=== PATIENT | male | born 1945 | race Caucasian/White ===

== ENCOUNTER 2023-01-18 15:05 | Observation (INO) ==
--- NOTE | 2023-01-18 15:42 | ED Triage Note ---
Date of Service January 18, 2023 History of Present Illness This patient was briefly evaluated while in triage. An abbreviated physical exam was performed. This patient is a 77-year-old Male who presents to the ED for evaluation of no good BM x 1 week using miralax seen in ED in [place] in mid december-diagnosed with diverticulitis-treated with antibiotics abdominal pain, left sided Physical Exam GENERAL: NAD CARDIOVASCULAR: RRR RESPIRATORY: CTA ABDOMEN: BS x 4. Nontender to palpation. Initial orders for labs and / or imaging were placed and patient was placed in the waiting area until a bed is available. Please see further documentation for the full ED course. MDM / Impression Impression Impression: Diverticulitis, Abdominal pain Impression: Abdominal pain Qualifiers: Abdominal location: left lower quadrant Qualified Code(s): R10.32 - Left lower quadrant pain
[2023-01-18 16:39] LABS: Basophils # (auto) 0.04 K/uL (0.00-0.20); Basophils % (auto) 0.6 %; Eosinophils # (auto) 0.21 K/uL (0.00-0.50); Eosinophils % (auto) 3.2 %; Hematocrit (blood only) 44.7 % (42.0-52.0); Hemoglobin 14.8 g/dl (14.0-18.0); Immature Granulocytes # (auto) 0.03 K/uL (0.01-0.20); Immature Granulocytes % (auto) 0.5 %; Lymphocytes # (auto) 2.06 K/uL (1.20-3.40); Lymphocytes % (auto) 31.6 %; Mean Corpuscular Hemoglobin 28.2 pg (25.0-34.0); Mean Corpuscular Hgb Conc 33.1 g/dL (32.0-36.0); Mean Corpuscular Volume 85.3 fL (80.0-100.0); Mean Platelet Volume 10.2 fL (9.4-12.4); Monocytes # (auto) 0.56 K/uL (0.11-0.59); Monocytes % (auto) 8.6 %; Neutrophils # (auto) 3.61 K/uL (1.40-6.50); Neutrophils % (auto) 55.5 %; Platelet Count 272 K/uL (130-400); RDW Coefficient of Variation 13.1 % (11.5-14.5); Red Blood Count 5.24 M/uL (4.70-6.10); White Blood Count 6.51 K/ul (4.8-10.8)
[2023-01-18 17:02] LABS: Albumin Globulin Ratio 1.2 (0.9-2); Bilirubin,Total 0.9 mg/dl (0.2-1.0); Calcium 9.3 mg/dl (8.6-10.3); Creatinine Clr Calc Pharmacy 58.1 ml/min; Est GFR (Non-African American) 73.3 ml/min; Globulin 3.3 gm/dl (2.5-4.0); Potassium 4.1 mmol/L (3.5-5.1); Total Protein 7.3 gm/dl (6.0-8.3)
[2023-01-18] MEDS ORDERED: OPTIRAY 320 100ml IV ONE (18:34)
--- NOTE | 2023-01-18 19:09 | CT Scan Report ---
ABDOMEN AND PELVIS CT WITH IV CONTRAST CT DOSE: 931.46 mGy.cm HISTORY: Acute generalized abdominal pain abdominal pain, constipated, recent diverticulitis TECHNIQUE: Multiaxial CT images of the abdomen and pelvis were performed following the IV administrat ion of 92 cc of Optiray, A dose lowering technique was utilized adhering to the principles of ALARA. COMPARISON STUDY: None. FINDINGS: Mild bibasilar atelectasis. No free air. Unremarkable spleen, pancreas and adrenal glands. Indeterminant 1.6 cm nodular density within the sandhya hepatis with a normal gallbladder not visualize d. Indeterminate 1.4 similar hypodensity of the inferior right hepatic lobe on image 95. Mild dilatio n of the common bile duct, 1.2 cm. Patent portal vein. Bilateral renal sinus cysts. 8 mm cyst of the superior pole left kidney. Mild cortical thinning of th e kidneys without hydronephrosis. Decompressed or neobladder with wall thickening. Atherosclerosis of the aorta. No lymphadenopathy. No bowel obstruction. Colonic diverticulosis. Acute diverticulitis of the proximal sigmoid colon with small pericolonic fluid collection measuring 11 mm on image 2:30. Unremarkable soft tissues. Hernior rhaphy coils within the abdominal floor quadrant. No acute fracture. IMPRESSION: 1. Acute sigmoid diverticulitis with 11 mm pericolonic fluid collection suggestive of a developing ab scess. No pneumoperitoneum or drainable fluid collection identified at this time. 2. No bowel obstruction. 3. Additional findings as above. ACT 112: Negative or not required by law. The above report was generated using voice recognition software. It may contain grammatical, syntax o r spelling errors. Electronically signed by: Chance Abdi M.D. 01/18/2023 7:07 PM
[2023-01-18] MEDS ORDERED: PIPERACILLIN/TAZOBACTAM 4.5 GM/100 ML BAG IV ONE (20:02)
--- NOTE | 2023-01-18 20:04 | Emergency Department Note ---
History of Present Illness General Chief complaint: Constipation Stated complaint: FULL OF POOP Time Seen by Provider: 01/18/23 19:51 Source: patient, family ( was at the bedside), RN notes reviewed and old records reviewed Mode of arrival: ambulatory Limitations: no limitations History of Present Illness Maximum Pain Intensity: 4 This patient is a 77-year-old male comes in with abdominal pain and difficulty h aving a bowel movement. He was diagnosed with diverticulitis about 6 weeks ago when he was in [facility]. He had 10 days of Cipro. There is no Flagyl he says. He felt a lot better is about a week ago he started having some abdominal problems this starting and constipated worse not having full bowel movement but is passing liquid he says. Questionable fever on Wednesday but none since then he had some nausea no emesis. His abdominal pain comes and goes is diffuse more so on the left. He had some mild dysuria this today but no hematuria. No fall or trauma no headache. Allergies Allergy/AdvReac Type Severity Reaction Status Date / Time No Known Allergies Allergy Verified 01/18/23 15:42 Past Med/Surg History Social History Smoking Status: Never smoker Preferred Language: Belarusian Feels Safe at Home: Yes Immunizations: Past medical historygallbladder removal, diverticulitis, arthritis. He takes no regular medications he is on no blood thinners Social history he is in town visiting he is from [place] he is here with his Review of Systems A total of 10 systems reviewed and were otherwise negative Physical Exam Vital Signs Vital Signs - 24 hr 01/18/23 15:39 01/18/23 21:00 Temperature 36.7 C Temperature Source Temporal Artery Scan Pulse Rate 70 Pulse Rate [Finger] 72 Pulse Rhythm [Finger] Regular Respiratory Rate 19 18 Respiratory Effort / Characteristics Non-Labored Respiratory Depth Normal Blood Pressure 144/72 H Blood Pressure [Right Arm] 130/70 Blood Pressure Mean 96 Blood Pressure Mean [Right Arm] 90 Pulse Oximetry 98 96 Oxygen Delivery Method Room Air Room Air Sepsis Recent Fever Within 48 Hours No Sepsis New/Unexplained Change in Mental Status N/A Sepsis Action Taken by Nursing No Action Required General: Well developed well nourished mildly tender palpation in the left lower abdomen and diffusely centrally as well. In no acute distress, breathing comfortably on room air. Normal speech HEENT: Normal cephalic atraumatic. Pupils are equal round and reactive to light. Extraocular movements are intact. Oropharynx is pink with moist mucous membranes. No swelling of the mouth lips or tongue. Neck: Supple with a midline trachea. No meningeal signs or stiffness, no JVD or bruits. No Stridor. Chest: Clear to auscultation bilaterally. No wheezes or rhonchi. No increased work of breathing. Heart: Regular rate and rhythm without murmurs or gallops. Abdomen: Soft nontender, nondistended without rebound guarding or rigidity. Extremities: No cyanosis clubbing or edema. No calf tenderness or assymetry Spine/Back. Non tender to palpation. No CVA tenderness Skin: Good turgor without rashes. Neurologic exam: Cranial nerves two through 12 are intact. Motor and sensation are intact and symmetrical throughout. Course Administered Medications Discontinued Medications Piperacillin Sod/Tazobactam Sod (Zosyn) 4.5 gm in 100 mls @ 200 mls/hr IV NOW ONE Stop: 01/18/23 20:31 Last Admin: 01/18/23 21:06 Dose: 200 mls/hr Documented By: BROCK Ioversol (Optiray 320 100ml) 92 ml IV ONCE ONE Stop: 01/18/23 18:35 Last Admin: 01/18/23 18:34 Dose: 92 ml Documented By: PHUC Medical Decision Making Differential Diagnosis Diverticulitis, diverticular abscess, bowel obstruction, constipation, infection, colitis, electrolyte or metabolic abnormality Medical Records Attestation: I reviewed the patient's medical records. Home Medications Current Medication List: was personally reviewed by me Laboratory Data Attestation: I reviewed the patient's lab results. 01/18/23 16:19 01/18/23 16:19 Lab Results 01/18/23 01/18/23 Range/Units 16:19 16:19 WBC 6.51 (4.8-10.8) K/ul RBC 5.24 (4.70-6.10) M/uL Hgb 14.8 (14.0-18.0) g/dl Hct 44.7 (42.0-52.0) % MCV 85.3 (80.0-100.0) fL MCH 28.2 (25.0-34.0) pg MCHC 33.1 (32.0-36.0) g/dL RDW Std Deviation 41.0 (36.4-46.3) fL RDW Coeff of Niels 13.1 (11.5-14.5) % Plt Count 272 (130-400) K/uL MPV 10.2 (9.4-12.4) fL Immature Gran % (Auto) 0.5 % Neut % (Auto) 55.5 % Lymph % (Auto) 31.6 % [place] % (Auto) 8.6 % Eos % (Auto) 3.2 % Baso % (Auto) 0.6 % Neut # (Auto) 3.61 (1.40-6.50) K/uL Lymph # (Auto) 2.06 (1.20-3.40) K/uL [place] # (Auto) 0.56 (0.11-0.59) K/uL Eos # (Auto) 0.21 (0.00-0.50) K/uL Baso # (Auto) 0.04 (0.00-0.20) K/uL Immature Gran # (Auto) 0.03 (0.01-0.20) K/uL Sodium 142 (136-145) mmol/L Potassium 4.1 (3.5-5.1) mmol/L Chloride 103 (98-107) mmol/L Carbon Dioxide 33 H (21-32) mmol/L Anion Gap 6 (3-11) BUN 15 (6-23) mg/dl Creatinine 1.00 (0.6-1.4) mg/dl Est Cr Clr Drug Dosing 58.1 ml/min Est GFR ( Amer) 85.0 ml/min Est GFR (Non-Af Amer) 73.3 ml/min BUN/Creatinine Ratio 15.0 (10-20) Glucose 97 (70-99(Fasting)) mg/dl Calcium 9.3 (8.6-10.3) mg/dl Total Bilirubin 0.9 (0.2-1.0) mg/dl AST 26 (13-39) U/L ALT 36 (7-52) U/L Alkaline Phosphatase 153 H (34-104) U/L C-Reactive Protein 8.67 H (0-0.5) mg/dl Total Protein 7.3 (6.0-8.3) gm/dl Albumin 4.0 (3.4-5.0) gm/dl Globulin 3.3 (2.5-4.0) gm/dl Albumin/Globulin Ratio 1.2 (0.9-2) Lipase 5 L (11-82) U/L Imaging Data Attestation: I personally reviewed and interpreted this imaging study as follows: My Impression: CAT scan abdomen pelvis. There is diverticulitis Radiologist's Impression: Abdomen/Pelvis CT 01/18/23 15:[address] WITH IV CONTRAST CT DOSE: 931.46 mGy.cm HISTORY: Acute generalized abdominal pain abdominal pain, constipated, recent diverticulitis TECHNIQUE: Multiaxial CT images of the abdomen and pelvis were performed following the IV administration of 92 cc of Optiray, A dose lowering technique was utilized adhering to the principles of ALARA. COMPARISON STUDY: None. FINDINGS: Mild bibasilar atelectasis. No free air. Unremarkable spleen, pancreas and adrenal glands. Indeterminant 1.6 cm nodular density within the sandhya hepatis with a normal gallbladder not visualized. Indeterminate 1.4 similar hypodensity of the inferior right hepatic lobe on image 95. Mild dilation of the common bile duct, 1.2 cm. Patent portal vein. Bilateral renal sinus cysts. 8 mm cyst of the superior pole left kidney. Mild cortical thinning of the kidneys without hydronephrosis. Decompressed or neobladder with wall thickening. Atherosclerosis of the aorta. No lymphadenopathy. No bowel obstruction. Colonic diverticulosis. Acute diverticulitis of the proximal sigmoid colon with small pericolonic fluid collection measuring 11 mm on image 2:30. Unremarkable soft tissues. Herniorrhaphy coils within the ab dominal floor quadrant. No acute fracture. IMPRESSION: 1. Acute sigmoid diverticulitis with 11 mm pericolonic fluid collection suggestive of a developing abscess. No pneumoperitoneum or drainable fluid collection identified at this time. 2. No bowel obstruction. 3. Additional findings as above. ACT 112: Negative or not required by law. The above report was generated using voice recognition software. It may contain grammatical, syntax or spelling errors. Electronically signed by: Chance Abdi M.D. 01/18/2023 7:07 PM MDM Narrative This patient comes in as scribed above. [place] He is having abdominal pain and constipation recent diverticulitis 6 weeks ago. IV access and blood work and CAT scan of been done prior to me seeing him. He has no white count or fever. He has no peritonitis. no significant electrolyte or metabolic abnormalities. his CAT scan is however concerning for diverticulitis with possible early abscess. In light of this, I do think he needs IV antibiotics. I gave him Zosyn 4.5 g IV. I have consulted Dr. Sruthi Fuentes to see him in the ER for these measures. Impression & Plan Diverticulitis, Abdominal pain Discharge Plan Visit Data Chief Complaint: Constipation Stated Complaint: FULL OF POOP ED Provider: Stas Lyles Discharge Problem: Diverticulitis, Abdominal pain Forms Stand Alone Forms: My [facility] Referrals Referrals: PCP,NO [Primary Care Provider] -
[2023-01-18 21:00] LABS: C Reactive Protein 8.67 mg/dl (0-0.5)
--- NOTE | 2023-01-18 21:03 | History & Physical Report ---
Date of Service January 18, 2023 Assessment & Plan (1) Diverticulitis: (2) Macular degeneration: Plan #Diverticulitis NPO Zosyn LR 125cc/hr Tylenol, Morphine for pain management Trend CRP, CBC #Macular Degeneration Timolol History of Present Illness Chief Complaint: Constipation Primary Care Provider: ANA MARÍA PCP 77 yo male PMHx macular degeneration presented to the ED abdominal pain and constipation that has slowly developed over the last week. Abdominal pain and constipation became acutely worse 09/14/22. Had one episode of fever 09/16/22 along with nausea and vomiting. Pt attempted to treat constipation with miralax, stool is watery but pt continues to have abdominal pain and sensation of f ullness. Of note, pt had acute diverticulitis 6 wks ago treated with ciprofloxacin for 10 days. No anaerobic coverage. After course of antibiotics, pt did feel improvement but never fully cleared his abdominal pain. CT scan demonstrates acute sigmoid diverticulitis, there is an 11mm ben-colonic fluid collection which may represent developing abscess. In ED: pt afebrile, bp 144/72, HR 70, RR 19, leukocytes 6.51 Pt endorses nausea and abdominal pain generalized throughout lower abdomen, slightly worse in LLQ. Allergies Allergy/AdvReac Type Severity Reaction Status Date / Time codeine AdvReac Severe Nausea Verified 01/18/23 21:46 Home Medications Medication Instructions Recorded Confirmed Type calcium citrate 200 mg (950 mg) 200 mg PO DAILY 01/18/23 01/18/23 History tablet cyanocobalamin (vitamin B-12) 500 500 mcg PO QAM 01/18/23 01/18/23 History mcg tablet (Vitamin B-12) docusate sodium 100 mg capsule 100 mg PO QAM 01/18/23 01/18/23 History multivitamin 1 tab PO QAM 01/18/23 01/18/23 History timolol maleate (PF) 0.5 % eye 1 drp OPB AMHS 01/18/23 01/18/23 History drops in a dropperette vit C 250 mg-vit E 90 mg-zinc 40 1 tab PO QAM 01/18/23 01/18/23 History mg-copper 1 [id number] capsule (PreserVision AREDS-2) vitamin E 1,000 unit tablet 5 tab PO QAM 01/18/23 01/18/23 History zinc 100 mg tablet 100 mg PO QAM 01/18/23 01/18/23 History Past Med/Surg History Social History Smoking Status: Never smoker Preferred Language: Kiswahili Feels Safe at Home: Yes Review of Systems Review of Systems: reviewed, per HPI Physical Exam Physical Exam: General: patient resting comfortably, NAD, non-toxic in appearance, AA&O x 4, answers questions appropriately and follows commands. Skin: warm, dry, intact HEENT: NC/AT, anicteric sclera, conjunctiva without injection, moist mucus membranes, trachea midline Heart: +S1/S2, regular, no m/r/g Lungs: equal air entry bilaterally, no rales/rhonchi/wheezes Abd: +BS, soft, TTP LLQ, no rebound or guarding, no masses/organomegaly/ascites Ext: warm, no clubbing/cyanosis or edema Neuro: nonfocal, patient AA&O x 4, speech intact, no facial droop, moving all extremities on command. Results & Data Results & Data Vital Signs (Past 12 Hours) Vital Signs Temp Pulse Resp BP Pulse Ox O2 Del Method 01/18/23 15:39 36.7 C 70 19 144/72 H 98 Room Air Laboratory Results Laboratory Results WBC 6.51 K/ul (4.8-10.8) 01/18/23 16:19 RBC 5.24 M/uL (4.70-6.10) 01/18/23 16:19 Hgb 14.8 g/dl (14.0-18.0) 01/18/23 16:19 Hct 44.7 % (42.0-52.0) 01/18/23 16:19 MCV 85.3 fL (80.0-100.0) 01/18/23 16:19 MCH 28.2 pg (25.0-34.0) 01/18/23 16:19 MCHC 33.1 g/dL (32.0-36.0) 01/18/23 16:19 RDW Std Deviation 41.0 fL (36.4-46.3) 01/18/23 16:19 RDW Coeff of Niels 13.1 % (11.5-14.5) 01/18/23 16:19 Plt Count 272 K/uL (130-400) 01/18/23 16:19 MPV 10.2 fL (9.4-12.4) 01/18/23 16:19 Immature Gran % (Auto) 0.5 % 01/18/23 16:19 Neut % (Auto) 55.5 % 01/18/23 16:19 Lymph % (Auto) 31.6 % 01/18/23 16:19 [place] % (Auto) 8.6 % 01/18/23 16:19 Eos % (Auto) 3.2 % 01/18/23 16:19 Baso % (Auto) 0.6 % 01/18/23 16:19 Neut # (Auto) 3.61 K/uL (1.40-6.50) 01/18/23 16:19 Lymph # (Auto) 2.06 K/uL (1.20-3.40) 01/18/23 16:19 [place] # (Auto) 0.56 K/uL (0.11-0.59) 01/18/23 16:19 Eos # (Auto) 0.21 K/uL (0.00-0.50) 01/18/23 16:19 Baso # (Auto) 0.04 K/uL (0.00-0.20) 01/18/23 16:19 Immature Gran # (Auto) 0.03 K/uL (0.01-0.20) 01/18/23 16:19 Sodium 142 mmol/L (136-145) 01/18/23 16:19 Potassium 4.1 mmol/L (3.5-5.1) 01/18/23 16:19 Chloride 103 mmol/L (98-107) 01/18/23 16:19 Carbon Dioxide 33 mmol/L (21-32) H 01/18/23 16:19 Anion Gap 6 (3-11) 01/18/23 16:19 BUN 15 mg/dl (6-23) 01/18/23 16:19 Creatinine 1.00 mg/dl (0.6-1.4) 01/18/23 16:19 Est Cr Clr Drug Dosing 58.1 ml/min 01/18/23 16:19 Est GFR ( Amer) 85.0 ml/min 01/18/23 16:19 Est GFR (Non-Af Amer) 73.3 ml/min 01/18/23 16:19 BUN/Creatinine Ratio 15.0 (10-20) 01/18/23 16:19 Glucose 97 mg/dl (70-99(Fasting)) 01/18/23 16:19 Calcium 9.3 mg/dl (8.6-10.3) 01/18/23 16:19 Total Bilirubin 0.9 mg/dl (0.2-1.0) 01/18/23 16:19 AST 26 U/L (13-39) 01/18/23 16:19 ALT 36 U/L (7-52) 01/18/23 16:19 Alkaline Phosphatase 153 U/L (34-104) H 01/18/23 16:19 C-Reactive Protein 7.28 mg/dl (0-0.5) H 01/18/23 22:28 Total Protein 7.3 gm/dl (6.0-8.3) 01/18/23 16:19 Albumin 4.0 gm/dl (3.4-5.0) 01/18/23 16:19 Globulin 3.3 gm/dl (2.5-4.0) 01/18/23 16:19 Albumin/Globulin Ratio 1.2 (0.9-2) 01/18/23 16:19 Lipase 5 U/L (11-82) L 01/18/23 16:19 Impressions Abdomen/Pelvis CT 01/18/23 15:[address] WITH IV CONTRAST CT DOSE: 931.46 mGy.cm HISTORY: Acute generalized abdominal pain abdominal pain, constipated, recent diverticulitis TECHNIQUE: Multiaxial CT images of the abdomen and pelvis were performed following the IV administration of 92 cc of Optiray, A dose lowering technique was utilized adhering to the principles of ALARA. COMPARISON STUDY: None. FINDINGS: Mild bibasilar atelectasis. No free air. Unremarkable spleen, pancreas and adrenal glands. Indeterminant 1.6 cm nodular density within the sandhya hepatis with a normal gallbladder not visualized. Indeterminate 1.4 similar hypodensity of the inferior right hepatic lobe on image 95. Mild dilation of the common bile duct, 1.2 cm. Patent portal vein. Bilateral renal sinus cysts. 8 mm cyst of the superior pole left kidney. Mild cortical thinning of the kidneys without hydronephrosis. Decompressed or neobladder with wall thickening. Atherosclerosis of the aorta. No lymphadenopathy. No bowel obstruction. Colonic diverticulosis. Acute diverticulitis of the proximal sigmoid colon with small pericolonic fluid collection measuring 11 mm on image 2:30. Unremarkable soft tissues. Herniorrhaphy coils within the abdominal floor quadrant. No acute fracture. IMPRESSION: 1. Acute sigmoid diverticulitis with 11 mm pericolonic fluid collection suggestive of a developing abscess. No pneumoperitoneum or drainable fluid collection identified at this time. 2. No bowel obstruction. 3. Additional findings as above. ACT 112: Negative or not required by law. The above report was generated using voice recognition software. It may contain grammatical, syntax or spelling errors. Electronically signed by: Chance Abdi M.D. 01/18/2023 7:07 PM Results / Data Laboratory 01/18/23 01/18/23 Range/Units 16:19 16:19 WBC 6.51 (4.8-10.8) K/ul RBC 5.24 (4.70-6.10) M/uL Hgb 14.8 (14.0-18.0) g/dl Hct 44.7 (42.0-52.0) % MCV 85.3 (80.0-100.0) fL MCH 28.2 (25.0-34.0) pg MCHC 33.1 (32.0-36.0) g/dL RDW Std Deviation 41.0 (36.4-46.3) fL RDW Coeff of Niels 13.1 (11.5-14.5) % Plt Count 272 (130-400) K/uL MPV 10.2 (9.4-12.4) fL Immature Gran % (Auto) 0.5 % Neut % (Auto) 55.5 % Lymph % (Auto) 31.6 % [place] % (Auto) 8.6 % Eos % (Auto) 3.2 % Baso % (Auto) 0.6 % Neut # (Auto) 3.61 (1.40-6.50) K/uL Lymph # (Auto) 2.06 (1.20-3.40) K/uL [place] # (Auto) 0.56 (0.11-0.59) K/uL Eos # (Auto) 0.21 (0.00-0.50) K/uL Baso # (Auto) 0.04 (0.00-0.20) K/uL Immature Gran # (Auto) 0.03 (0.01-0.20) K/uL Sodium 142 (136-145) mmol/L Potassium 4.1 (3.5-5.1) mmol/L Chloride 103 (98-107) mmol/L Carbon Dioxide 33 H (21-32) mmol/L Anion Gap 6 (3-11) BUN 15 (6-23) mg/dl Creatinine 1.00 (0.6-1.4) mg/dl Est Cr Clr Drug Dosing 58.1 ml/min Est GFR ( Amer) 85.0 ml/min Est GFR (Non-Af Amer) 73.3 ml/min BUN/Creatinine Ratio 15.0 (10-20) Glucose 97 (70-99(Fasting)) mg/dl Calcium 9.3 (8.6-10.3) mg/dl Total Bilirubin 0.9 (0.2-1.0) mg/dl AST 26 (13-39) U/L ALT 36 (7-52) U/L Alkaline Phosphatase 153 H (34-104) U/L C-Reactive Protein Pending Total Protein 7.3 (6.0-8.3) gm/dl Albumin 4.0 (3.4-5.0) gm/dl Globulin 3.3 (2.5-4.0) gm/dl Albumin/Globulin Ratio 1.2 (0.9-2) Lipase 5 L (11-82) U/L Diagnostics CT: IMPRESSION: 1. Acute sigmoid diverticulitis with 11 mm pericolonic fluid collection suggestive of a developing abscess. No pneumoperitoneum or drainable fluid collection identified at this time. 2. No bowel obstruction. 3. Additional findings as above. Supervising Physician Co-Signing Physician Notes Patient seen and examined, chart reviewed, case discussed with Dr. Chang and I agree with the assessment and plan as documented above. In brief, patient is a 77yo male presenting with abdominal pain, watery diarrhea. He was treated 6 weeks ago for acute diverticulitis while in [place]. Seemingly treated only with Ciprofloxacin, possibly "took another antibiotic too". CT findings as above with acute diverticulitis with 11mm fluid collection. On exam, patient afebrile, HD stable, non-toxic in appearance Skin - no rash HEENT - MMM, Neck supple Heart - +S1/S2, regular Lungs - CTA Abd - +BS, soft, NT/ND Ext - warm, well perfused Assessment/Plan Acute, complicated diverticulitis with possible early abscess formation -Zosyn -NPO -General Surgery consultation appreciated -Remainder as above PG Care Time/CCT Total # of Minutes Spent Total Time Spent with Patient: Total time spent is greater than 50% in coordination of care (as documented) at patient's floor/unit and/or counseling patient: Coding Level of Care Code 40573 INT INP/OBS CARE MIN Diagnoses Diverticulitis K57.92 Macular degeneration H35.30 Resident Activity Tracking Resident Involvement: Resident Care Provided Care Provided: Adult Hospital Medicine
[2023-01-18] MEDS ORDERED: ACETAMINOPHEN 1,000 MG/100 ML VIAL IV PRN (23:49)
[2023-01-18] MEDS ORDERED: ONDANSETRON INJ 2 MG/ML 2 ML VIAL IV PRN (23:49)
[2023-01-18] MEDS ORDERED: MoRPHine SULFATE 4 MG/ML 1 ML CARP\\VIAL IV PRN (23:49)
[2023-01-19] MEDS: PIPERACILLIN/TAZOBACTAM 4.5 GM in DEXTROSE 5% MINI-B 100 ML IV SCH ×3 (01:50→21:23)
[2023-01-19] MEDS: LACTATED RINGER'S 1,000 ML IV SCH ×2 (02:55→11:35)
[2023-01-19 04:21] LABS: Albumin Globulin Ratio 1.1 (0.9-2); Albumin Level 3.5 gm/dl (3.4-5.0); BUN Creatinine Ratio 16.2 (10-20); Bilirubin,Total 1.1 mg/dl (0.2-1.0); C Reactive Protein 5.88 mg/dl (0-0.5); Calcium 8.7 mg/dl (8.6-10.3); Creatinine Clr Calc Pharmacy 55.4 ml/min; Est GFR (African American) 80.1 ml/min; Est GFR (Non-African American) 69.1 ml/min; Globulin 3.1 gm/dl (2.5-4.0); Potassium 3.7 mmol/L (3.5-5.1); Total Protein 6.6 gm/dl (6.0-8.3)
[2023-01-19 04:29] LABS: Basophils # (auto) 0.03 K/uL (0.00-0.20); Basophils % (auto) 0.5 %; Eosinophils # (auto) 0.23 K/uL (0.00-0.50); Eosinophils % (auto) 3.8 %; Hematocrit (blood only) 41.9 % (42.0-52.0); Hemoglobin 14.2 g/dl (14.0-18.0); Immature Granulocytes # (auto) 0.02 K/uL (0.01-0.20); Immature Granulocytes % (auto) 0.3 %; Lymphocytes # (auto) 1.77 K/uL (1.20-3.40); Lymphocytes % (auto) 28.9 %; Mean Corpuscular Hemoglobin 28.5 pg (25.0-34.0); Mean Corpuscular Hgb Conc 33.9 g/dL (32.0-36.0); Mean Corpuscular Volume 84.1 fL (80.0-100.0); Mean Platelet Volume 10.1 fL (9.4-12.4); Monocytes # (auto) 0.51 K/uL (0.11-0.59); Monocytes % (auto) 8.3 %; Neutrophils # (auto) 3.56 K/uL (1.40-6.50); Neutrophils % (auto) 58.2 %; Platelet Count 251 K/uL (130-400); RDW Standard Deviation 39.8 fL (36.4-46.3); Red Blood Count 4.98 M/uL (4.70-6.10); White Blood Count 6.12 K/ul (4.8-10.8)
--- NOTE | 2023-01-19 07:35 | Hospitalist Progress Note ---
Date of Service January 19, 2023 Assessment & Plan (1) Diverticulitis: (2) Macular degeneration: Plan Pt is a 77 yo male with PMHx of macular degeneration presenting with LLQ abdominal pain. #Diverticulitis - CT abdomen/pelvis significant for acute sigmoid diverticulitis with developing abscess. No pneumoperitoneum. - NPO, consider transitioning to clear liquids this evening with subsequent progression as tolerated - Continue IV Zosyn - Continue maintenance fluids, LR 125cc/hr - Tylenol, Morphine for pain management - Surgery consulted, no indication for surgical intervention at this time. #Macular Degeneration - Continue Timolol Diet: NPO VTE ppx: deferred, consider starting lovenox tomorrow Admission and Anticipated Discharge Date Admission Date: January 18, 2023 Supervising Physician Co-Signing Physician Notes Resident Physician Supervision Note: I independently interviewed and examined the patient and verified the mariano history and physical, reviewed labs and image studies and agree with resident findings and care plan. Subjective Pt is a 77 yo male with PMHx of macular degeneration presenting with LLQ abdominal pain. Pt evaluated at bedside this morning, notes that he continues to have very mild LLQ abdominal pain with occasional sharp pain. Denies nausea/vomiting but notes that he has had poor appetite over the past few days. No bowel movement since last , patient tried taking Miralax with subsequent watery diarrhea but still feels constipated. No fever/chills. Review of Systems Review of Systems: All systems reviewed & are unremarkable except as noted in HPI & below Physical Exam Constitutional: WD/WN, vitals as above no acute distress Respiratory: normal respiratory effort, lungs clear to auscultation Cardiovascular: RRR, no murmur, no edema Gastrointestinal (Abdomen): LLQ tenderness to palpation, bowel sounds intact, abdomen soft and without rigidity or guarding, abdomen non-distended Skin: no rashes, warm and dry Psychiatric: A+Ox3, euthymic affect Results & Data Results & Data Vital Signs (Past 12 Hours) Vital Signs Pulse Resp BP Pulse Ox O2 Del Method 01/19/23 04:08 62 16 126/69 95 Room Air 01/19/23 02:16 70 18 139/77 95 Room Air 01/18/23 23:09 70 18 135/80 97 Room Air 01/18/23 21:00 72 18 130/70 96 Room Air Laboratory Results Abnormal lab results 01/18/23 01/18/23 01/19/23 Range/Units 16:19 22:28 03:54 Hct 41.9 L (42.0-52.0) % Carbon Dioxide 33 H (21-32) mmol/L Total Bilirubin (0.2-1.0) mg/dl Alkaline Phosphatase 153 H (34-104) U/L C-Reactive Protein 8.67 H 7.28 H (0-0.5) mg/dl Lipase 5 L (11-82) U/L 01/19/23 Range/Units 03:54 Hct (42.0-52.0) % Carbon Dioxide (21-32) mmol/L Total Bilirubin 1.1 H (0.2-1.0) mg/dl Alkaline Phosphatase 129 H (34-104) U/L C-Reactive Protein 5.88 H (0-0.5) mg/dl Lipase (11-82) U/L Diagnostic Findings Abdomen/Pelvis CT 01/18/23 15:[address] WITH IV CONTRAST CT DOSE: 931.46 mGy.cm HISTORY: Acute generalized abdominal pain abdominal pain, constipated, recent diverticulitis TECHNIQUE: Multiaxial CT images of the abdomen and pelvis were performed following the IV administration of 92 cc of Optiray, A dose lowering technique was utilized adhering to the principles of ALARA. COMPARISON STUDY: None. FINDINGS: Mild bibasilar atelectasis. No free air. Unremarkable spleen, pancreas and adrenal glands. Indeterminant 1.6 cm nodular density within the sandhya hepatis with a normal gallbladder not visualized. Indeterminate 1.4 similar hypodensity of the inferior right hepatic lobe on image 95. Mild dilation of the common bile duct, 1.2 cm. Patent portal vein. Bilateral renal sinus cysts. 8 mm cyst of the superior pole left kidney. Mild cortical thinning of the kidneys without hydronephrosis. Decompressed or neobladder with wall thickening. Atherosclerosis of the aorta. No lymphadenopathy. No bowel obstruction. Colonic diverticulosis. Acute diverticulitis of the p roximal sigmoid colon with small pericolonic fluid collection measuring 11 mm on image 2:30. Unremarkable soft tissues. Herniorrhaphy coils within the abdominal floor quadrant. No acute fracture. IMPRESSION: 1. Acute sigmoid diverticulitis with 11 mm pericolonic fluid collection suggestive of a developing abscess. No pneumoperitoneum or drainable fluid collection identified at this time. 2. No bowel obstruction. 3. Additional findings as above. ACT 112: Negative or not required by law. The above report was generated using voice recognition software. It may contain grammatical, syntax or spelling errors. Electronically signed by: Chance Abdi M.D. 01/18/2023 7:07 PM Resident Activity Tracking Resident Involvement: Resident Care Provided Care Provided: Adult Hospital Medicine
--- NOTE | 2023-01-19 09:28 | Surgery Consultation ---
Date of Consultation January 19, 2023 Assessment & Plan (1) Diverticulitis: Plan 77-year-old gentleman with recurrent diverticulitis with phlegmon and possible small developing abscess. He will be admitted to the hospital on the medicine service. He will be kept on IV fluids and IV antibiotics. He is on Zosyn, as the Cipro Flagyl did not appear to be effective in his last diverticulitis bout. We will follow for now. No surgical intervention is required at this time. History of Present Illness Requesting Physician: Idalia Cano MD Attending Physician: Idalia Cano MD History of Present Illness 77-year-old gentleman presents with a weeklong history of increasing left lower quadrant abdominal pain. He was hospitalized in [place] 6 weeks ago with uncomplicated diverticulitis. At that time he was placed on Cipro and Flagyl. Once the antibiotics finished, he started to have worsening pain. He has been constipated. He was taking MiraLAX and now has had nothing but diarrhea. He continues to have increasing pain in the left lower quadrant. He has had chills and nausea. CT scan demonstrates acute sigmoid diverticulitis with phlegmon/possible developing small abscess. Allergies Allergy/AdvReac Type Severity Reaction Status Date / Time codeine AdvReac Severe Nausea Verified 01/18/23 21:46 Home Medications Medication Instructions Recorded Confirmed Type calcium citrate 200 mg (950 mg) 200 mg PO DAILY 01/18/23 01/18/23 History tablet cyanocobalamin (vitamin B-12) 500 500 mcg PO QAM 01/18/23 01/18/23 History mcg tablet (Vitamin B-12) docusate sodium 100 mg capsule 100 mg PO QAM 01/18/23 01/18/23 History multivitamin 1 tab PO QAM 01/18/23 01/18/23 History timolol maleate (PF) 0.5 % eye 1 drp OPB [facility] 01/18/23 01/18/23 History drops in a dropperette vit C 250 mg-vit E 90 mg-zinc 40 1 tab PO QAM 01/18/23 01/18/23 History mg-copper 1 tw-bipgob-aloilo capsule (PreserVision AREDS-2) vitamin E 1,000 unit tablet 5 tab PO QAM 01/18/23 01/18/23 History zinc 100 mg tablet 100 mg PO QAM 01/18/23 01/18/23 History Patient History Social History Smoking Status: Never smoker Hx Alcohol Use: No Hx Substance Use: No Preferred Language: Spanish 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 Beliefs That Will Affect Care: None Current Living Situation: Spouse Other Information That Helps Us Care for You: No Feels Safe at Home: Yes Safety Concerns: Feels Safe At This Time Assistive Devices: None, Denture - Upper, Denture - Lower and Glasses Review of Systems Review of Systems: All systems reviewed & are unremarkable except as noted in HPI & below Physical Exam Constitutional: WD/WN, vitals as above Eyes: PERRL, conjunctivae normal, anicteric sclerae Neck: trachea midline, no thyromegaly Respiratory: normal respiratory effort; no respiratory distress and no labored breathing Cardiovascular: Rate/Rhythm: regular rate and regular rhythm Gastrointestinal (Abdomen): Inspection/Auscultation: abdomen normal to inspection; abdomen not distended Percussion/Palpation: + abdomen tender (LLQ) and abdomen soft; no guarding and abdomen not rigid Skin: no rashes, warm and dry Psychiatric: A+Ox3, euthymic affect Results & Data Vital Signs (Past 12 Hours) Vital Signs Pulse Resp BP Pulse Ox O2 Del Method 01/19/23 08:30 63 18 121/67 96 Room Air 01/19/23 08:00 53 L 18 125/68 96 Room Air 01/19/23 04:08 62 16 126/69 95 Room Air 01/19/23 02:16 70 18 139/77 95 Room Air 01/18/23 23:09 70 18 135/80 97 Room Air Laboratory Results 01/19/23 01/19/23 01/18/23 Range/Units 03:54 03:54 22:28 WBC 6.12 (4.8-10.8) K/ul RBC 4.98 (4.70-6.10) M/uL Hgb 14.2 (14.0-18.0) g/dl Hct 41.9 L (42.0-52.0) % MCV 84.1 (80.0-100.0) fL MCH 28.5 (25.0-34.0) pg MCHC 33.9 (32.0-36.0) g/dL RDW Std Deviation 39.8 (36.4-46.3) fL RDW Coeff of Niels 13.0 (11.5-14.5) % Plt Count 251 (130-400) K/uL MPV 10.1 (9.4-12.4) fL Immature Gran % (Auto) 0.3 % Neut % (Auto) 58.2 % Lymph % (Auto) 28.9 % [place] % (Auto) 8.3 % Eos % (Auto) 3.8 % Baso % (Auto) 0.5 % Neut # (Auto) 3.56 (1.40-6.50) K/uL Lymph # (Auto) 1.77 (1.20-3.40) K/uL [place] # (Auto) 0.51 (0.11-0.59) K/uL Eos # (Auto) 0.23 (0.00-0.50) K/uL Baso # (Auto) 0.03 (0.00-0.20) K/uL Immature Gran # (Auto) 0.02 (0.01-0.20) K/uL Sodium 140 (136-145) mmol/L Potassium 3.7 (3.5-5.1) mmol/L Chloride 106 (98-107) mmol/L Carbon Dioxide 28 (21-32) mmol/L Anion Gap 6 (3-11) BUN 17 (6-23) mg/dl Creatinine 1.05 (0.6-1.4) mg/dl Est Cr Clr Drug Dosing 55.4 ml/min Est GFR ( Amer) 80.1 ml/min Est GFR (Non-Af Amer) 69.1 ml/min BUN/Creatinine Ratio 16.2 (10-20) Glucose 87 (70-99(Fasting)) mg/dl Calcium 8.7 (8.6-10.3) mg/dl Total Bilirubin 1.1 H (0.2-1.0) mg/dl AST 20 (13-39) U/L ALT 28 (7-52) U/L Alkaline Phosphatase 129 H (34-104) U/L C-Reactive Protein 5.88 H 7.28 H (0-0.5) mg/dl Total Protein 6.6 (6.0-8.3) gm/dl Albumin 3.5 (3.4-5.0) gm/dl Globulin 3.1 (2.5-4.0) gm/dl Albumin/Globulin Ratio 1.1 (0.9-2) Lipase (11-82) U/L 01/18/23 01/18/23 Range/Units 16:19 16:19 WBC 6.51 (4.8-10.8) K/ul RBC 5.24 (4.70-6.10) M/uL Hgb 14.8 (14.0-18.0) g/dl Hct 44.7 (42.0-52.0) % MCV 85.3 (80.0-100.0) fL MCH 28.2 (25.0-34.0) pg MCHC 33.1 (32.0-36.0) g/dL RDW Std Deviation 41.0 (36.4-46.3) fL RDW Coeff of Niels 13.1 (11.5-14.5) % Plt Count 272 (130-400) K/uL MPV 10.2 (9.4-12.4) fL Immature Gran % (Auto) 0.5 % Neut % (Auto) 55.5 % Lymph % (Auto) 31.6 % [place] % (Auto) 8.6 % Eos % (Auto) 3.2 % Baso % (Auto) 0.6 % Neut # (Auto) 3.61 (1.40-6.50) K/uL Lymph # (Auto) 2.06 (1.20-3.40) K/uL [place] # (Auto) 0.56 (0.11-0.59) K/uL Eos # (Auto) 0.21 (0.00-0.50) K/uL Baso # (Auto) 0.04 (0.00-0.20) K/uL Immature Gran # (Auto) 0.03 (0.01-0.20) K/uL Sodium 142 (136-145) mmol/L Potassium 4.1 (3.5-5.1) mmol/L Chloride 103 (98-107) mmol/L Carbon Dioxide 33 H (21-32) mmol/L Anion Gap 6 (3-11) BUN 15 (6-23) mg/dl Creatinine 1.00 (0.6-1.4) mg/dl Est Cr Clr Drug Dosing 58.1 ml/min Est GFR ( Amer) 85.0 ml/min Est GFR (Non-Af Amer) 73.3 ml/min BUN/Creatinine Ratio 15.0 (10-20) Glucose 97 (70-99(Fasting)) mg/dl Calcium 9.3 (8.6-10.3) mg/dl Total Bilirubin 0.9 (0.2-1.0) mg/dl AST 26 (13-39) U/L ALT 36 (7-52) U/L Alkaline Phosphatase 153 H (34-104) U/L C-Reactive Protein 8.67 H (0-0.5) mg/dl Total Protein 7.3 (6.0-8.3) gm/dl Albumin 4.0 (3.4-5.0) gm/dl Globulin 3.3 (2.5-4.0) gm/dl Albumin/Globulin Ratio 1.2 (0.9-2) Lipase 5 L (11-82) U/L Diagnostic Findings ABDOMEN AND PELVIS CT WITH IV CONTRAST CT DOSE: 931.46 mGy.cm HISTORY: Acute generalized abdominal pain abdominal pain, constipated, recent diverticulitis TECHNIQUE: Multiaxial CT images of the abdomen and pelvis were performed following the IV administration of 92 cc of Optiray, A dose lowering technique was utilized adhering to the principles of ALARA. COMPARISON STUDY: None. FINDINGS: Mild bibasilar atelectasis. No free air. Unremarkable spleen, pancreas and adrenal glands. Indeterminant 1.6 cm nodular density within the sandhya hepatis with a normal gallbladder not visualized. Indeterminate 1.4 similar hypodensity of the inferior right hepatic lobe on image 95. Mild dilation of the common bile duct, 1.2 cm. Patent portal vein. Bilateral renal sinus cysts. 8 mm cyst of the superior pole left kidney. Mild cortical thinning of the kidneys without hydronephrosis. Decompressed or neobladder with wall thickening. Atherosclerosis of the aorta. No lymphadenopathy. No bowel obstruction. Colonic diverticulosis. Acute diverticulitis of the proximal sigmoid colon with small pericolonic fluid collection measuring 11 mm on image 2:30. Unremarkable soft tissues. Herniorrhaphy coils within the abdominal floor quadrant. No acute fracture. IMPRESSION: 1. Acute sigmoid diverticulitis with 11 mm pericolonic fluid collection suggestive of a developing abscess. No pneumoperitoneum or drainable fluid collection identified at this time. 2. No bowel obstruction. 3. Additional findings as above.
[2023-01-19] MEDS ORDERED: Nursing to Pharmacy Communication SCH (18:00)
[2023-01-19 21:35] LABS: Appearance Urine Clear (Clear); Bilirubin Urine Negative (Negative); Blood Urine Negative (Negative); Color Urine Yellow; Glucose Urine UA Negative (Negative); Ketones Urine 3+ (Negative); Leukocyte Esterase Urine Negative (Negative); Nitrite Urine Negative (Negative); Protein Urine Negative (Negative); Specific Gravity Urine 1.025 (1.000-1.030); Urobilinogen Urine Negative (Negative); pH Urine 7.5 (4.5-7.5)
[2023-01-19] MEDS: SODIUM CHLORIDE 0.9% 1,000 ML IV SCH (23:21)
[2023-01-20] MEDS: PIPERACILLIN/TAZOBACTAM 4.5 GM in DEXTROSE 5% MINI-B 100 ML IV SCH ×3 (05:20→15:12)
[2023-01-20 06:52] LABS: Hematocrit (blood only) 41.6 % (42.0-52.0); Hemoglobin 14.6 g/dl (14.0-18.0); Mean Corpuscular Hemoglobin 29.1 pg (25.0-34.0); Mean Corpuscular Hgb Conc 35.1 g/dL (32.0-36.0); Mean Corpuscular Volume 82.9 fL (80.0-100.0); Platelet Count 253 K/uL (130-400); RDW Coefficient of Variation 12.7 % (11.5-14.5); RDW Standard Deviation 38.5 fL (36.4-46.3); Red Blood Count 5.02 M/uL (4.70-6.10); White Blood Count 6.89 K/ul (4.8-10.8)
[2023-01-20 07:10] LABS: BUN Creatinine Ratio 21.9 (10-20); C Reactive Protein 3.74 mg/dl (0-0.5); Calcium 8.5 mg/dl (8.6-10.3); Creatinine Clr Calc Pharmacy 55.4 ml/min; Est GFR (African American) 80.1 ml/min; Est GFR (Non-African American) 69.1 ml/min; Potassium 4.3 mmol/L (3.5-5.1)
--- NOTE | 2023-01-20 07:29 | Hospitalist Progress Note ---
Date of Service January 20, 2023 Assessment & Plan (1) Diverticulitis: (2) Macular degeneration: Plan Pt is a 77 yo male with PMHx of macular degeneration presenting with LLQ abdominal pain. #Diverticulitis - CT abdomen/pelvis significant for acute sigmoid diverticulitis with developing abscess. No pneumoperitoneum. - NPO, consider transitioning to clear liquids this evening with subsequent progression as tolerated - Continue IV Zosyn - Continue maintenance fluids, LR 125cc/hr - Tylenol, Morphine for pain management - Surgery consulted, no indication for surgical intervention at this time. #Macular Degeneration - Continue Timolol Diet: NPO VTE ppx: deferred, consider starting lovenox tomorrow Admission and Anticipated Discharge Date Admission Date: January 18, 2023 Subjective Pt is a 77 yo male with PMHx of macular degeneration presenting with LLQ abdominal pain. Pt evaluated at bedside this morning, notes that he continues to have very mild LLQ abdominal pain with occasional sharp pain. Denies nausea/vomiting but notes that he has had poor appetite over the past few days. No bowel movement since last , patient tried taking Miralax with subsequent watery diarrhea but still feels constipated. No fever/chills. Physical Exam Constitutional: WD/WN, vitals as above no acute distress Respiratory: normal respiratory effort, lungs clear to auscultation Cardiovascular: RRR, no murmur, no edema Skin: no rashes, warm and dry Psychiatric: A+Ox3, euthymic affect Results & Data Results & Data Vital Signs (Past 12 Hours) Vital Signs Temp Pulse Resp BP Pulse Ox O2 Del Method 01/20/23 07:09 36.4 C L 56 L 18 128/74 97 Room Air 01/19/23 21:43 36.5 C 51 L 16 125/71 98 Room Air
--- NOTE | 2023-01-20 09:52 | Surgery Progress Note ---
Date of Service January 20, 2023 Assessment & Plan (1) Diverticulitis: Plan 77-year-old gentleman with recurrent diverticulitis with phlegmon and possible small developing abscess. afebrile, vss no leukocytosis benign abdominal examination today tolerating clears Plan: No surgical intervention required at this time continue IV Zosyn as he was on PO Cipro/flagyl for his last episode of diverticulitis He will need 14 total days of antibiotics given phlegmon and small abscess will need colonoscopy in 6-8 weeks, states he has appt in mid February back at home will need chart and imaging copied (CD) for patient as he lives in [place] Continue medical management Discussed with Dr. Edmonds who agrees with above Admission and Anticipated Discharge Date Admission Date: January 18, 2023 Subjective feeling better no abdominal pain currently tolerating clear liquids without nausea or increase in pain. Appetite is low and wishes to go slow with diet no fever or chills passing gas, no bowel movement Physical Exam Constitutional: WD/WN, vitals as above cooperative and comfortable; no acute distress and not ill appearing Gastrointestinal (Abdomen): Inspection/Auscultation: abdomen normal to inspection; abdomen not distended Percussion/Palpation: abdomen soft; abdomen nontender, no guarding, abdomen not rigid and abdomen not firm Skin: no rashes, warm and dry Psychiatric: A+Ox3, euthymic affect Results & Data Vital Signs (Past 12 Hours) Vital Signs Temp Pulse Resp BP Pulse Ox O2 Del Method 01/20/23 07:09 36.4 C L 56 L 18 128/74 97 Room Air Laboratory Results 01/20/23 01/20/23 01/19/23 Range/Units 06:25 06:25 21:10 WBC 6.89 (4.8-10.8) K/ul RBC 5.02 (4.70-6.10) M/uL Hgb 14.6 (14.0-18.0) g/dl Hct 41.6 L (42.0-52.0) % MCV 82.9 (80.0-100.0) fL MCH 29.1 (25.0-34.0) pg MCHC 35.1 (32.0-36.0) g/dL RDW Std Deviation 38.5 (36.4-46.3) fL RDW Coeff of Niels 12.7 (11.5-14.5) % Plt Count 253 (130-400) K/uL MPV 10.0 (9.4-12.4) fL Sodium 139 (136-145) mmol/L Potassium 4.3 (3.5-5.1) mmol/L Chloride 105 (98-107) mmol/L Carbon Dioxide 27 (21-32) mmol/L Anion Gap 7 (3-11) BUN 23 (6-23) mg/dl Creatinine 1.05 (0.6-1.4) mg/dl Est Cr Clr Drug Dosing 55.4 ml/min Est GFR ( Amer) 80.1 ml/min Est GFR (Non-Af Amer) 69.1 ml/min BUN/Creatinine Ratio 21.9 H (10-20) Glucose 74 (70-99(Fasting)) mg/dl Calcium 8.5 L (8.6-10.3) mg/dl C-Reactive Protein 3.74 H (0-0.5) mg/dl Urine Color Yellow Urine Appearance Clear (Clear) Urine pH 7.5 (4.5-7.5) Ur Specific [place] 1.025 (1.000-1.030) Urine Protein Negative (Negative) Urine Glucose (UA) Negative (Negative) Urine Ketones 3+ H (Negative) Urine Blood Negative (Negative) Urine Nitrite Negative (Negative) Urine Bilirubin Negative (Negative) Urine Urobilinogen Negative (Negative) Ur Leukocyte Esterase Negative (Negative)
[2023-01-20] MEDS: SODIUM CHLORIDE 0.9% 1,000 ML IV SCH (12:18)
--- NOTE | 2023-01-20 16:33 | Discharge Summary ---
Date of Service January 20, 2023 Admission HPI Per Admitting Provider 77 yo male PMHx macular degeneration presented to the ED abdominal pain and constipation that has slowly developed over the last week. Abdominal pain and constipation became acutely worse 09/14/22. Had one episode of fever 09/16/22 along with nausea and vomiting. Pt attempted to treat constipation with miralax, stool is watery but pt continues to have abdominal pain and sensation of fullness. Of note, pt had acute diverticulitis 6 wks ago treated with ciprofloxacin for 10 days. No anaerobic coverage. After course of antibiotics, pt did feel improvement but never fully cleared his abdominal pain. CT scan demonstrates acute sigmoid diverticulitis, there is an 11mm ben-colonic fluid collection which may represent developing abscess. In ED: pt afebrile, bp 144/72, HR 70, RR 19, leukocytes 6.51 Pt endorses nausea and abdominal pain generalized throughout lower abdomen, slightly worse in LLQ. Admission Exam Per Admitting Provider General: patient resting comfortably, NAD, non-toxic in appearance, AA&O x 4, answers questions appropriately and follows commands. Skin: warm, dry, intact HEENT: NC/AT, anicteric sclera, conjunctiva without injection, moist mucus membranes, trachea midline Heart: +S1/S2, regular, no m/r/g Lungs: equal air entry bilaterally, no rales/rhonchi/wheezes Abd: +BS, soft, TTP LLQ, no rebound or guarding, no masses/organomegaly/ascites Ext: warm, no clubbing/cyanosis or edema Neuro: nonfocal, patient AA&O x 4, speech intact, no facial droop, moving all extremities on command. Principal Diagnosis acute diverticulitis Discharge Exam Constitutional WD/WN, vitals as above Respiratory normal respiratory effort, lungs clear to auscultation Cardiovascular RRR, no murmur, no edema Gastrointestinal (Abdomen) bowel sounds intact, LLQ mildly tender to palpation, no guarding or rigidity. Abdomen soft, non-distended Skin no rashes, warm and dry Psychiatric A+Ox3, euthymic affect Discharge Data Allergies Allergy/AdvReac Type Severity Reaction Status Date / Time codeine AdvReac Severe Nausea Verified 01/18/23 21:46 Consultations 01/18/23 23:49 Consult General Surgery Routine Ordered Studies 01/18/23 15:43 CT abd pelvis IV con only Stat Hospital Course (1) Diverticulitis: (2) Macular degeneration: Plan Pt is a 77 yo male with PMHx of macular degeneration who presented with LLQ abdominal pain, subsequent work up significant for diverticulitis #Diverticulitis with developing abscess - CT abdomen/pelvis was significant for acute sigmoid diverticulitis with developing abscess. No pneumoperitoneum. - Surgery consulted - recommended conservative management. - Patient was initially NPO, diet progressed over hospital stay, which patient tolerated well - Maintenance fluids given until patient had sufficient PO intake. - Patient initially treated with IV Zosyn, antibiotics transitioned to PO Augmentin on discharge. Patient to complete 12 more days of antibiotic therapy for total course of 14 days. - Tylenol, Morphine given for pain management - Surgery Recommend outpatient colonoscopy in 6-8 weeks. Total Time Total Time Spent Total Time Spent (In Minutes): see attending attestation Discharge Plan Discharge Items Patient Disposition: Home - Self-Care Reason For Visit: ACUTE COMPLICATAED SIGMOID DIVERTICULITIS Discharge Diagnosis: diverticulitis Activity: Resume your previous activity Non-emergency contact: Primary Care Provider Call non-emergency contact if: you have any medication questions, your symptoms worsen and you have a fever Follow-up/Referrals: Cherise Pena NP [Primary Care Provider] - Diet: Low Fiber Addtl Attending Provider Instructions: You were admitted to the hospital for acute diverticulitis. You were treated with bowel rest and subsequent reintroduction of solid foods. Please continue to advance your diet as tolerated. You were also given IV antibiotics. A discharge summary will be sent to your primary care physician to ensure continuity of care. Please bring this discharge summary with you to your next office appointment so that your provider can review it at that time. Medications: Your medication list has been reviewed and reconciled upon discharge to ensure accuracy and continuity of care. An updated list of all your medications is included with your hospital discharge paperwork. Please review this list closely and make note of any changes to your medications. You were given antibiotics for two days while in the hospital. We are discharging you with an antibiotic called Augmentin (amoxicillin-clavulanate). This has been sent to your pharmacy. Please take this medication 3 times per day (morning, afternoon, evening) for 12 more days. No other changes were made to your medications, please continue to take them as previously directed. Follow up appointments: - Make a follow up appointment with your PCP within the next week. It is very important that you follow up with them shortly after discharge from the hospital. - Keep all of your follow up appointments as already scheduled. If you cannot make an appointment, notify your provider. CONTACT YOUR PRIMARY CARE PROVIDER if you experience any of the following: - Difficulty following your treatment plan - Difficulty taking any of your medications CALL 911 OR GO TO THE EMERGENCY DEPARTMENT if you experience any of the following: - Sudden, severe abdominal pain or nausea/vomiting - Severe chest pain or chest pain that radiates to your jaw or arm - Sudden, severe shortness of breath or difficulty breathing Pending Studies at Discharge: No Stand-Alone Forms: [facility] [place] [employer], Smoking Cessation Medications and DC Order Prescriptions: New amoxicillin-pot clavulanate 875-125 mg tablet 1 tab PO TID 12 Days Qty: 36 0RF Continued multivitamin Tablet 1 tab PO QAM timolol maleate (PF) 0.5 % Dropperette 1 drp OPB [facility] PreserVision AREDS-2 250-90-40-1 mg Capsule 1 tab PO QAM zinc 100 mg Tablet 100 mg PO QAM cyanocobalamin (vitamin B-12) [Vitamin B-12] 500 mcg Tablet 500 mcg PO QAM Rx Instructions: takes per doctors order docusate sodium 100 mg Capsule 100 mg PO QAM vitamin E 1,000 unit Tablet 5 tab PO QAM Rx Instructions: per patient he takes 5,000 units calcium citrate 200 mg (950 mg) Tablet 200 mg PO DAILY Discharge Orders: Discharge Order (Routine); Ordered 01/20/23 Ordered By: Chalo Taylor Admission Data Admit Date/Time: 01/18/23 21:19 Attending Provider: Idalia Cano Admit Provider: Ba Chang Primary Care Provider: Cherise Pena Other Providers: Gemma Pizarro Other Interventions: Discharge Summary Assessment (RN) Last Done: 01/20/23 15:55 Supervising Physician Co-Signing Physician Notes Resident Physician Supervision Note: I independently interviewed and examined the patient and verified the mariano history and physical, reviewed labs and image studies and agree with resident findings and care plan. Resident Activity Tracking Resident Involvement: Resident Care Provided Care Provided: Adult Hospital Medicine
== END 2023-01-20 16:34 | disposition home or self-care (01) ==
LOC: ED 15:05 → EDINP 21:19 → SUATTDRO 21:19 → INTOOBSV 21:19 → 3E 23:49